=== PATIENT | male | born 1950 | race Two or more races ===

== ENCOUNTER 2024-04-15 16:35 | Inpatient (IN) | payer OTHER ==
[~2024-04-15] VITALS: Ht 180.3 cm; Wt 115.0 kg
[2024-04-15 16:46] VITALS: PULSE 190; RESP 22; O2SAT 96
[2024-04-15] MEDS: METOPROLOL TARTRATE 1MG/1ML-5ML VIAL IV ONE ×2 (17:00→17:46)
[2024-04-15] MEDS: dilTIAZem 125mg/125ml BAG KIT 125 ML IV ONE (18:03)
[2024-04-15 18:06] LABS: Basophils # (auto) 0 10 ^3/uL (0-0.2); Basophils % (auto) 0.5 % (0.0-2.0); Eosinophils # (auto) 0.1 10 ^3/uL (0-0.8); Eosinophils % (auto) 1.3 % (0.0-7.0); Hematocrit 42.2 % (41.0-53.0); Hemoglobin 14.7 g/dL (13.5-17.5); Lymphocytes % (auto) 29.5 % (10.0-50.0); Mean Corpuscular Hemoglobin 32.1 pg (28.0-32.0); Mean Corpuscular Hgb Conc. 34.8 g/dL (32.0-36.0); Mean Corpuscular Volume 92.3 fL (80.0-100.0); Monocytes # (auto) 0.6 10 ^3/uL (0-1.3); Monocytes % (auto) 8.8 % (0.0-12.0); Neutrophils # (auto) 4.1 10 ^3/uL (1.6-8.6); Neutrophils % (auto) 59.9 % (37.0-80.0); Nucleated Red Blood Cells % 0.1 %; Platelet Count (auto) 199 10^3/uL (140-450); Red Blood Cells 4.57 10^6/uL (4.5-5.90); Red Cell Distribution Width 12.9 % (11.8-14.3); White Blood Cell 6.8 10^3/uL (4.4-10.8)
[2024-04-15 18:21] LABS: Alanine Aminotransferase 26 U/L (7-40); Albumin 4.4 g/dL (3.2-4.8); Alkaline Phosphatase 70 U/L (46-116); Anion Gap 9 (5-15); Aspartate Aminotransferase 22 U/L (13-40); BUN/Creatinine Ratio 15.9 (10.0-20.0); Blood Urea Nitrogen 17 mg/dL (9-23); Calcium 10.4 mg/dL (8.7-10.4); Carbon Dioxide 24 mmol/L (20-30); Chloride 107 mmol/L (98-107); Glucose 171 mg/dL (74-106); Magnesium 1.9 mg/dL (1.6-2.6); Potassium 3.8 mmol/L (3.5-5.1); Sodium 140 mmol/L (136-145)
[2024-04-15 18:22] LABS: Bilirubin, Total 0.4 mg/dL (0.2-1.0); Total Protein 7.5 g/dL (5.7-8.2)
[2024-04-15] MEDS: SODIUM CHLORIDE 0.9% 500 ML IV ONE (18:52)
[2024-04-15 19:30] VITALS: PULSE 130; RESP 20; O2SAT 97
[2024-04-15] MEDS ORDERED: MORPHINE SULFATE INJ 2 MG/ml SYRG IV PRN (21:00)
[2024-04-15] MEDS ORDERED: NITROGLYCERIN 0.4 MG SL TAB SL PRN (21:00)
[2024-04-15] MEDS ORDERED: ONDANSETRON HCL 4 MG/2 ML VIAL IV PRN (21:00)
[2024-04-15] MEDS ORDERED: ACETAMINOPHEN 325 MG TAB PO PRN (21:00)
[2024-04-15] MEDS ORDERED: ATORVASTATIN 20 MG TAB PO SCH (22:00)
[2024-04-15] MEDS: AMIODARONE BOLUS KIT 100 ML IV ONE (22:47)
[2024-04-15] MEDS: AMIODARONE 450mg/250ml AE 250 ML IV SCH (23:01)
[2024-04-16] MEDS: AMIODARONE BOLUS KIT 100 ML IV ONE (03:15)
[2024-04-16] MEDS: AMIODARONE 450mg/250ml AE 250 ML IV SCH (05:20)
[2024-04-16 05:49] LABS: Basophils # (auto) 0 10 ^3/uL (0-0.2); Basophils % (auto) 0.4 % (0.0-2.0); Eosinophils # (auto) 0.1 10 ^3/uL (0-0.8); Hemoglobin 13.5 g/dL (13.5-17.5); Lymphocytes # (auto) 1.8 10 ^3/uL (0.4-5.4); Lymphocytes % (auto) 31.4 % (10.0-50.0); Mean Corpuscular Hemoglobin 31.8 pg (28.0-32.0); Mean Corpuscular Hgb Conc. 34.5 g/dL (32.0-36.0); Mean Corpuscular Volume 92.1 fL (80.0-100.0); Monocytes # (auto) 0.5 10 ^3/uL (0-1.3); Monocytes % (auto) 9.6 % (0.0-12.0); Neutrophils # (auto) 3.3 10 ^3/uL (1.6-8.6); Neutrophils % (auto) 57.6 % (37.0-80.0); Nucleated Red Blood Cells % 0.1 %; Platelet Count (auto) 160 10^3/uL (140-450); Red Blood Cells 4.24 10^6/uL (4.5-5.90); Red Cell Distribution Width 13.3 % (11.8-14.3); White Blood Cell 5.7 10^3/uL (4.4-10.8)
[2024-04-16 06:14] LABS: Alanine Aminotransferase 19 U/L (7-40); Alkaline Phosphatase 48 U/L (46-116); Anion Gap 9 (5-15); Aspartate Aminotransferase 17 U/L (13-40); BUN/Creatinine Ratio 14.9 (10.0-20.0); Bilirubin, Total 0.9 mg/dL (0.2-1.0); Blood Urea Nitrogen 14 mg/dL (9-23); Calcium 9.1 mg/dL (8.7-10.4); Carbon Dioxide 23 mmol/L (20-30); Chloride 107 mmol/L (98-107); Glucose 145 mg/dL (74-106); Potassium 3.8 mmol/L (3.5-5.1); Sodium 139 mmol/L (136-145); Total Protein 6.5 g/dL (5.7-8.2)
[2024-04-16 08:00] VITALS: PULSE 68; RESP 21; O2SAT 98
[2024-04-16] MEDS: APIXABAN 5 MG TAB PO SCH (10:12)
[2024-04-16] MEDS: ASPirin 81 mg TAB PO SCH (10:12)
[2024-04-16] MEDS: METOPROLOL SUCCINATE XL 50 MG TAB PO SCH (10:13)
[2024-04-16] MEDS: CLOPIDOGREL BISULFATE 75 MG TAB PO SCH (10:13)
[2024-04-16 12:29] VITALS: BP 125/66; PULSE 68; RESP 17; TEMP 97.8; O2SAT 98
[2024-04-16 13:19] VITALS: BP 116/64; PULSE 63; RESP 18; TEMP 98.3; O2SAT 95
[2024-04-16] MEDS: POTASSIUM CHL 20 Meq TABLET PO ONE (13:48)
[2024-04-16] MEDS: MAGNESIUM OXIDE 400 MG TAB PO ONE (13:49)
[2024-04-16 15:22] LABS: Amphetamine Screen, Urine Neg (NEGATIVE); Barbiturate Scree,Urine Neg (NEGATIVE); Benzodiazephine Screen, Urine Neg (NEGATIVE); Cannabinoid Screen, Urine Neg (NEGATIVE); Cocaine Screen, Urine Neg (NEGATIVE); Opiate Scree,Urine Neg (NEGATIVE); Phencyclidine Screen, Urine Neg (NEGATIVE)
[2024-04-16 16:05] LABS: Urine Bacteria None Seen /hpf (None Seen)
[2024-04-16 16:21] LABS: Urine Blood Negative /uL (Negative); Urine Clarity Clear (Clear); Urine Color Yellow (Yellow); Urine Mucus FEW (None Seen); Urine Protein, UAD Negative (Negative); Urine Specific Gravity 1.019 (1.001-1.035); Urine Urobilinogen 2 mg/dL (Negative); Urine WBC 1 /hpf (0 - 3); Urine pH 5.5 (5.0-9.0)
[2024-04-16 17:08] VITALS: BP 105/66; PULSE 64; RESP 16; TEMP 97.7; O2SAT 97
[2024-04-16] MEDS ORDERED: DEXTROSE (50%) 50ML SYRG IV PRN (17:45)
[2024-04-16] MEDS: AMIODARONE HCL 200 MG TAB PO SCH (18:37)
[2024-04-16 20:00] VITALS: PULSE 63
[2024-04-16 20:56] VITALS: BP 108/45; PULSE 66; RESP 20; TEMP 97.8; O2SAT 97
[2024-04-16] MEDS ORDERED: ATORVASTATIN 20 MG TAB PO SCH (22:00)
[2024-04-16] MEDS ORDERED: AMIODARONE HCL 200 MG TAB PO SCH (22:00)
[2024-04-16] MEDS: InsuLIN REG 1unit/0.01ml Soln (100units/ml) SC SCH (23:25)
[2024-04-16] MEDS: ACCU-CHEK COMFORT CURVE STRIP VI SCH (23:26)
[2024-04-17] MEDS ORDERED: LOSA-533 PO (05:00)
[2024-04-17] MEDS ORDERED: METF-370 PO (05:00)
[2024-04-17] MEDS ORDERED: TRAM50TA2 PO (05:00)
[2024-04-17] MEDS ORDERED: CLOP75TA70 PO (05:00)
[2024-04-17] MEDS ORDERED: METO25TA5 PO (05:00)
[2024-04-17] MEDS ORDERED: ASPI1TAB20 PO (05:00)
[2024-04-17] MEDS ORDERED: APIX5TAB PO (05:00)
[2024-04-17] MEDS ORDERED: ROSU10TA16 PO (05:00)
[2024-04-17 05:26] VITALS: BP 95/56; PULSE 58; RESP 18; TEMP 97.8; O2SAT 98
[2024-04-17 07:31] LABS: Cholesterol 129 mg/dL (< 200); Triglycerides 125 mg/dL (< 150)
[2024-04-17 07:33] LABS: HDL Cholesterol 38 mg/dL (40-59); LDL Cholesterol 72 mg/dL (< 100)
[2024-04-17 07:48] LABS: Rapid Influenza A Negative (Negative); Rapid Influenza B Negative (Negative)
[2024-04-17 07:49] LABS: COVID19 ANTIGEN SOFIA FIA NEGATIVE (NEGATIVE)
[2024-04-17 08:00] VITALS: BP 123/77; PULSE 62; PULSE 76; RESP 14; TEMP 98.3; O2SAT 97
[2024-04-17 09:03] LABS: Chloride 109 mmol/L (98-107); Potassium 4.1 mmol/L (3.5-5.1); Sodium 139 mmol/L (136-145)
[2024-04-17 09:04] LABS: Anion Gap 3 (5-15); Carbon Dioxide 27 mmol/L (20-30)
[2024-04-17 09:05] LABS: Calcium 9.3 mg/dL (8.7-10.4)
[2024-04-17 09:09] LABS: BUN/Creatinine Ratio 15.2 (10.0-20.0); Blood Urea Nitrogen 14 mg/dL (9-23); Glucose 129 mg/dL (74-106)
[2024-04-17] MEDS ORDERED: AMIO200T33 PO (10:34)
[2024-04-17 12:50] VITALS: BP 123/77; PULSE 76
[2024-04-17 13:00] VITALS: BP 114/67; PULSE 62; RESP 18; TEMP 97.9; O2SAT 96
== END 2024-04-17 14:26 | disposition home or self-care (01) | DRG 309 ==
LOC: EDBD 16:35 → ER 16:35 → TELE 20:57 → TELE-E-ADS 04-16 12:06
PROVIDERS: ADMIT Nurse Practitioner; ATTEND Internal Medicine Geriatric Medicine
DX: I48.0 Paroxysmal atrial fibrillation (principal); D68.8 Other specified coagulation defects; E11.9 Type 2 diabetes mellitus without complications; Z20.822 Contact with and (suspected) exposure to COVID-19; I25.10 Atherosclerotic heart disease of native coronary artery without angina pectoris; E78.5 Hyperlipidemia, unspecified; Z95.5 Presence of coronary angioplasty implant and graft; Z79.899 Other long term (current) drug therapy; I10 Essential (primary) hypertension
CPT/HCPCS: 36415; 71045; 80048; 80053; 80061; 80307; 81001; 82962; 83036; 83735; 83880; 84443; 84484; 85025; 85379; 87426; 87804; 93005; 93306; 96374; G0378; J1815